=== PATIENT | female | born 2005 ===

== ENCOUNTER 2024-02-10 23:42 | Emergency (ER) | payer OTHER ==
[~2024-02-10] VITALS: Ht 157.5 cm; Wt 51.1 kg
[2024-02-11] MEDS ORDERED: ONDANSETRON ODT8 MG PO (00:03)
[2024-02-11] MEDS ORDERED: PRENATAL VITAM1 EACH PO (00:03)
--- OUTSIDE RECORDS SUMMARY | 2024-02-11 01:10 | XMS ---
PreManage Notification: CARIDAD IBARRA [employer] Events No recent Security Events currently on file CRITERIA MET - [facility] - 2 Visits in 30 Days CARE PROVIDERS -, [facility] Dentist: Support Services Manager Current [place] PHONE: [phone] Carolina Salas Nurse Practitioner: Family Current PHONE: Unknown Yelitza has no Care Guidelines for this patient. [facility] VISIT COUNT (12 MO.) [address] TOTAL 4 NOTE: Visits indicate total known visits. ED/UCC VISIT TRACKING (12 MO.) 02/10/2024 23:44 [facility] TYPE: Emergency COMPLAINT: - ABDOMINAL PAIN 02/10/2024 19:07 [facility] TYPE: Emergency COMPLAINT: - Abdominal Cramps, DIAGNOSES: - Abdominal Cramps, 11/05/2023 10:02 [facility] TYPE: Emergency DIAGNOSES: - Abnormal uterine and vaginal bleeding, unspecified - Complete or unspecified spontaneous without complication - VAGINAL BLEEDING 7 WKS 09/25/2023 17:58 [facility] TYPE: Emergency DIAGNOSES: - Pain in right hand - hand Injury INPATIENT VISIT TRACKING (12 MO.) No inpatient visits to display in this time frame [email or web address]
[2024-02-11 01:13] LABS: BASOPHILS 0.4 % (0-2); EOSINOPHILS 2.2 % (0-6); HEMATOCRIT 36.7 % (35.0-50.0); HEMOGLOBIN 12.8 g/dL (12.0-18.0); LYMPHOCYTES 30.1 % (24-44); MCH 31.3 (27-36); MCHC 34.8 g/dl (30-36); NEUTROPHILS 60.3 % (39-80); PLATELET COUNT 205 K/uL (140-440); RBC 4.08 M/ul (4.3-5.7); RDW 13.4 (10.5-15.0)
[2024-02-11 01:36] LABS: ALBUMIN 3.5 g/dL (3.4-5.0); ALBUMIN/GLOBULIN RATIO 0.88 (1.1-2.4); ANION GAP 13.5 (7-21); BILIRUBIN, TOTAL 0.2 ng/dL (0.2-1.0); BUN/CREATININE RATIO 15.62 (6.0-28.6); CALCIUM 9.3 mg/dL (8.5-10.1); CREATININE, SERUM 0.64 mg/dL (0.55-1.02); POTASSIUM 3.5 mmol/L (3.5-5.1); PROTEIN, TOTAL 7.5 g/dL (6.4-8.2)
[2024-02-11 01:44] LABS: ABO B; RH POSITIVE
[2024-02-11 02:04] LABS: BILIRUBIN, URINE NEGATIVE (negative); BLOOD/HGB, URINE NEGATIVE (Negative); KETONE, URINE NEGATIVE (Negative); LEUK ESTERASE, URINE NEGATIVE (negative); NITRITE, URINE NEGATIVE (negative)
[2024-02-11 02:18] VITALS: BP 114/72
== END 2024-02-11 02:19 | disposition home or self-care (01) ==
LOC: ED 23:42 → EDBD 23:44 → ED 23:44
PROVIDERS: Internal Medicine
DX: O99.891 Other specified diseases and conditions complicating pregnancy (principal); R10.2 Pelvic and perineal pain; Z3A.09 9 weeks gestation of pregnancy; Z79.899 Other long term (current) drug therapy
CPT/HCPCS: 36415; 76801; 80053; 81003; 84702; 85025; 86900; 86901; 99284-25